=== PATIENT | female | born 1975 | race Caucasian/White ===

== ENCOUNTER → 2020-08-25 | Day surgery (SDC) | payer BC ==
[~2020-08-25] MED LIST: Lactated Ringers 1,000 ML IV SCH
--- NOTE | 2020-08-25 08:50 | PCM.SN.2 ---
- Free Text/Narrative Note: 44 year old presented to [facility] for scheduled laparoscopic assisted vaginal hysterectomy. She reported that from 08/19-08/21/20, she experienced a low grade fever, abdominal and right flank pain. She was seen in the [facility] and had labwork done including a UA, CBC, ESR and BMP. UA had RBCs and leukocytes, ESR was elevated. She does not know what the results of her BMP were. She was started on Augmentin and her symptoms have since improved. I reviewed the patient's symptoms and labs along with the risks of going through with a major surgery while she has an active infective. Strongly advised patient to reschedule her surgery when she is asymptomatic and off of her antibiotics. Patient agrees with recommendations and will present to [facility] for exam this morning and to reschedule her surgery. Case discussed with nursing staff and Dr. Pastor with anesthesia.
== END ==
LOC: MW.SDS 07:58
PROVIDERS: ATTEND Obstetrics & Gynecology
DX: R10.9 Unspecified abdominal pain (principal); Z53.09 Procedure and treatment not carried out because of other contraindication; R50.9 Fever, unspecified; Z01.812 Encounter for preprocedural laboratory examination; Z20.828 Contact with and (suspected) exposure to other viral communicable diseases
CPT/HCPCS: U0002

== ENCOUNTER 2020-09-12 07:33 | Day surgery (SDC) | payer BC ==
[~2020-09-12 07:33] MED LIST changes: +Bupivacaine 0.25% 10 ML SDV ONE; +Fluorescein 5 ML Vial ONE; -Lactated Ringers 1,000 ML IV SCH; +Methylene Blue 50 MG/10 ML Ampule ONE; +Midazolam 1 MG/ML 2 ML SDV ONE; +Propofol 200 MG/20 ML SDV ONE; +Rocuronium Bromide 50 MG/5 ML Syringe ONE; +Succinylcholine/Sod PF 100 MG/5 ML SYRINGE IV ONE; +fentaNYL 100 MCG/2 ML SDV ONE
[2020-09-12 08:30] LABS: BLOOD UREA NITROGEN,BUN 14 mg/dL (7.0-18.0); CARBON DIOXIDE,CO2 24.7 mmol/L (21.0-32.0); CHLORIDE,CL 106 mmol/L (98-107); GLUCOSE RANDOM 106 mg/dL (74-106); POTASSIUM,K 4.3 mmol/L (3.5-5.1); SODIUM,NA 139 mmol/L (136-145)
--- NOTE | 2020-09-12 08:52 | PCM.PREANE ---
Preanesthetic Assessment - Anesthesia/Transfusion/Family Hx Anesthesia History: Prior Anesthesia Without Reaction Family History of Anesthesia Reaction: No Transfusion History: No Prior Transfusion(s) Intubation History: Unknown - Review of Systems General: No Symptoms Pulmonary: No Symptoms Cardiovascular: No Symptoms Gastrointestinal: No Symptoms Neurological: No Symptoms Other: Reports: None - Physical Assessment Height: 5 ft 4.5 in Weight: 75.75 kg ASA Class: 1 Mental Status: Alert & Oriented x3 Airway Class: Mallampati = 2 Dentition: Reports: Normal Dentition Thyro-Mental Finger Breadths: 3 Mouth Opening Finger Breadths: 3 ROM/Head Extension: Full Lungs: Clear to Auscultation, Normal Respiratory Effort Cardiovascular: Regular Rate, Regular Rhythm - Lab Values: Laboratory Last Values WBC 6.90 K/uL (4.0-11.0) 09/12/20 07:53 RBC 4.40 M/uL (4.30-5.90) 09/12/20 07:53 Hgb 12.2 g/dL (12.0-16.0) 09/12/20 07:53 Hct 37.3 % (36.0-46.0) 09/12/20 07:53 MCV 84.8 fL (80.0-98.0) 09/12/20 07:53 MCH 27.7 pg (27.0-32.0) 09/12/20 07:53 MCHC 32.7 g/dL (31.0-37.0) 09/12/20 07:53 RDW Std Deviation 50.1 fl (28.0-62.0) 09/12/20 07:53 RDW Coeff of Ann 17 % (11.0-15.0) H 09/12/20 07:53 Plt Count 288 K/uL (150-400) 09/12/20 07:53 MPV 10.30 fL (7.40-12.00) 09/12/20 07:53 Nucleated RBC % 0.0 /100WBC 09/12/20 07:53 Nucleated RBCs # 0 K/uL 09/12/20 07:53 Sodium 139 mmol/L (136-145) 09/12/20 07:53 Potassium 4.3 mmol/L (3.5-5.1) 09/12/20 07:53 Chloride 106 mmol/L (98-107) 09/12/20 07:53 Carbon Dioxide 24.7 mmol/L (21.0-32.0) 09/12/20 07:53 BUN 14 mg/dL (7.0-18.0) 09/12/20 07:53 Creatinine 1.0 mg/dL (0.6-1.0) 09/12/20 07:53 Est Cr Clr Drug Dosing 64.62 mL/min 09/12/20 07:53 Estimated GFR (MDRD) > 60.0 ml/min 09/12/20 07:53 Glucose 106 mg/dL (74-106) 09/12/20 07:53 Calcium 8.6 mg/dL (8.5-10.1) 09/12/20 07:53 HCG, Qual NEGATIVE (NEG) 09/12/20 07:53 SARS-CoV-2 RNA (ZARI) NEGATIVE (NEGATIVE) 09/12/20 07:30 - Allergies Allergies/Adverse Reactions: Allergies Allergy/AdvReac Type Severity Reaction Status Date / Time No Known Allergies Allergy Verified 09/08/20 14:57 - Blood Blood Available: No - Anesthesia Plan Pre-Op Medication Ordered: None - Acknowledgements Anesthesia Type Planned: General Anesthesia Pt an Appropriate Candidate for the Planned Anesthesia: Yes Alternatives and Risks of Anesthesia Discussed w Pt/Guardian: Yes Pt/Guardian Understands and Agrees with Anesthesia Plan: Yes PreAnesthesia Questionnaire HEENT History: Reports: Impaired Vision Other HEENT History: wears glasses Cardiovascular History: Reports: None Respiratory History: Reports: None Gastrointestinal History: Reports: Other (See Below) Other Gastrointestinal History: states has occasional heartburn Genitourinary History: Reports: None 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: Musculoskeletal History: Reports: None Neurological History: Reports: Concussion, Migraines Psychiatric History: Reports: None Endocrine/Metabolic History: Reports: None Hematologic History: Reports: Iron Deficiency Immunologic History: Reports: None Oncologic (Cancer) History: Reports: None Dermatologic History: Reports: None - Infectious Disease History Infectious Disease History: Reports: Chicken Pox, Scarlet Fever Other Infectious Disease History: when a child - Past Surgical History Head Surgeries/Procedures: Reports: None HEENT Surgical History: Reports: None Cardiovascular Surgical History: Reports: None Respiratory Surgical History: Reports: None GI Surgical History: Reports: Colonoscopy Female Surgical History: Reports: Other (See Below) Other Female Surgeries/Procedures: ESSURE Endocrine Surgical History: Reports: None Neurological Surgical History: Reports: None Musculoskeletal Surgical History: Reports: None Oncologic Surgical History: Reports: None Dermatological Surgical History: Reports: None - SUBSTANCE USE Tobacco Use Status *Q: Former Tobacco User Tobacco Use Within Last Twelve Months: No - HOME MEDS Home Medications: Home Meds Calcium Carbonate [Tums] 1 tab PO ASDIRECTED PRN 08/15/20 [History] Iron 1 tab PO DAILY 08/15/20 [History] L.acidoph,Paracasei, B.lactis [Probiotic] 1 tab PO DAILY 08/15/20 [History] Omeprazole Magnesium [Prilosec Otc] 1 tab PO ASDIRECTED PRN 08/15/20 [History] - CURRENT (IN HOUSE) MEDS Current Meds: Current Medications Lactated Ringer's (Ringers, Lactated) 1,000 mls @ 125 mls/hr IV ASDIRECTED KD Discontinued Medications Bupivacaine HCl (Sensorcaine-Mpf 0.25%) Confirm Administered Dose 10 ml .ROUTE .STK-MED ONE Stop: 09/12/20 07:26 Fentanyl (Sublimaze) Confirm Administered Dose 100 mcg .ROUTE .STK-MED ONE Stop: 09/12/20 07:10 Fluorescein Sodium (Ak-Fluor) Confirm Administered Dose 5 ml .ROUTE .STK-MED ONE Stop: 09/12/20 07:26 Acetaminophen (Ofirmev) Confirm Administered Dose 100 mls @ as directed .ROUTE .STK-MED ONE Stop: 09/12/20 07:26 Lidocaine HCl (Xylocaine-Mpf 1%) Confirm Administered Dose 5 ml .ROUTE .STK-MED ONE Stop: 09/12/20 07:11 Methylene Blue (Provayblue) Confirm Administered Dose 50 mg .ROUTE .STK-MED ONE Stop: 09/12/20 07:26 Midazolam HCl (Versed 1 Mg/Ml) Confirm Administered Dose 2 mg .ROUTE .STK-MED ONE Stop: 09/12/20 07:10 Propofol (Diprivan 20 Ml) Confirm Administered Dose 200 mg .ROUTE .STK-MED ONE Stop: 09/12/20 07:10 Rocuronium [place] (Rocuronium [place]) Confirm Administered Dose 50 mg .ROUTE .STK-MED ONE Stop: 09/12/20 07:11
[2020-09-12] MEDS ORDERED: Albuterol/Ipratropium 3.0-0.5 MG/3 ML Neb Soln NEB ONE (09:00)
[2020-09-12] MEDS: Lactated Ringers 1,000 ML IV SCH ×2 (09:03→20:30)
[2020-09-12] MEDS ORDERED: CEFAZOLIN IV ONE (09:15)
[2020-09-12] MEDS ORDERED: Dexamethasone 4 MG/ML 5 ML MDV ONE (10:17)
[2020-09-12] MEDS ORDERED: diphenhydrAMINE 50 MG/ML SDV ONE (10:17)
[2020-09-12] MEDS ORDERED: fentaNYL 100 MCG/2 ML SDV IVPUSH PRN (10:28)
[2020-09-12] MEDS ORDERED: 50% Dextrose in Water 50 ML Syringe IVPUSH PRN (10:28)
[2020-09-12] MEDS ORDERED: HYDROmorphone 2 MG/ML Syringe IVPUSH PRN ×2 (10:28→12:11)
[2020-09-12] MEDS ORDERED: EPINEPHrine 1:10,000 1 MG/10 ML Syringe IVPUSH PRN (10:28)
[2020-09-12] MEDS ORDERED: Naloxone 0.4 MG/ML Syringe IVPUSH PRN (10:28)
[2020-09-12] MEDS ORDERED: Ondansetron 4 MG/2 ML SDV IVPUSH PRN ×2 (10:28→12:23)
[2020-09-12] MEDS ORDERED: Albuterol 0.083% 2.5 MG/3 ML Neb Soln NEB PRN (10:28)
[2020-09-12] MEDS ORDERED: Atropine 0.1 MG/ML 10 ML Syringe IVPUSH PRN ×2 (10:28)
[2020-09-12] MEDS ORDERED: ePHEDrine 50 MG/ML SDV ONE (11:41)
[2020-09-12] MEDS ORDERED: Glycopyrrolate 0.2 MG/ML SDV ONE (11:41)
[2020-09-12] MEDS ORDERED: Morphine 4 MG/ML Syringe IVPUSH PRN (12:23)
[2020-09-12] MEDS ORDERED: Ketorolac 30 MG/ML SDV IVPUSH PRN (12:23)
[2020-09-12] MEDS ORDERED: Ketorolac 30 MG/ML SDV IVPUSH ONE (12:23)
[2020-09-12] MEDS ORDERED: Promethazine 25 MG/ML SDV IM PRN (12:23)
[2020-09-12] MEDS ORDERED: Acetaminophen/oxyCODONE 325-5 MG Tab PO PRN (12:23)
--- NOTE | 2020-09-12 12:40 | PCM.OPNOTE ---
- General Post-Op/Procedure Note Date of Surgery/Procedure: 09/12/20 Operative Procedure(s): Pelvic washings. Laparoscopic assisted vaginal hysterectomy with bilateral salpingectomy. Cystoscopy Findings: Enlarged, 12 week size, anteverted uterus with multiple fibroids. Largest measuring about 6cm and located fundally. Normal appearing bilateral fallopian tubes and ovaries. Pre Op Diagnosis: 1. Menorrhagia. 2. Symptomatic anemia Post-Op Diagnosis: 1. Menorrhagia. 2. Symptomatic anemia Anesthesia Technique: General ET Tube Primary Surgeon: Rupali Aguillon Steamer Tender: Shila James Pathology: Uterus, cervix and bilateral fallopian tubes Fluid Replacement, Intraop: 1,800 (crystalloid) Output, Urine Amount: 150 EBL in mLs: 150 Complications: None known Condition: Good Free Text/Narrative:: Dictation # [id number]
--- NOTE | 2020-09-12 13:17 | PCM.POSTAN ---
POST ANESTHESIA ASSESSMENT - MENTAL STATUS Mental Status: Alert, Oriented - VITAL SIGNS Vital Signs: Last Vital Signs Temp 36.2 C 09/12/20 11:58 Pulse 61 09/12/20 12:49 Resp 12 09/12/20 12:49 BP 98/59 L 09/12/20 12:49 Pulse Ox 93 L 09/12/20 12:49 - RESPIRATORY Respiratory Status: Respiratory Rate WNL, Airway Patent, O2 Saturation Stable - CARDIOVASCULAR CV Status: Pulse Rate WNL, Blood Pressure Stable - GASTROINTESTINAL GI Status: No Symptoms - PAIN Pain Score: 3 - POST OP HYDRATION Hydration Status: Adequate & Stable - OBSERVATIONS Free Text/Narrative:: No anesthesia problems
[2020-09-12] MEDS ORDERED: Lactated Ringers 1,000 ML IV ONE (15:36)
[2020-09-12] MEDS ORDERED: Lactated Ringers 500 ML IV ONE (15:50)
--- NOTE | 2020-09-12 16:42 | OR ---
SURGEON: RUPALI AGUILLON MD DATE OF PROCEDURE: 09/12/2020 PREOPERATIVE DIAGNOSES: 1. Menorrhagia. 2. Symptomatic anemia. POSTOPERATIVE DIAGNOSES: 1. Menorrhagia. 2. Symptomatic anemia. PROCEDURES: 1. Pelvic washing. 2. Laparoscopically-assisted vaginal hysterectomy with bilateral salpingectomy. 3. Cystoscopy. ANESTHESIA: General endotracheal tube. PRIMARY SURGEON: Rupali Aguillon MD WAN SUPPORT SPECIALIST: Shila James MD COMPLICATIONS: None known. OPERATIVE FINDINGS: Enlarged 12-week size anteverted uterus; multiple fibroids, largest measuring about 6 cm and located fundally; and normal-appearing bilateral fallopian tubes and ovaries. BRIEF HISTORY: The patient is a 44-year-old, 5, para 5, who has a longstanding history of menorrhagia and irregular menses. In July 2019, she was noted to have a hemoglobin of 8 and was started on oral along with IV iron infusion by her primary care physician. Hemoglobin prior to procedure today is 12. She had a benign endometrial biopsy performed prior to this procedure. Consent for laparoscopically-assisted vaginal hysterectomy with bilateral salpingectomy was obtained in the office and the rest of the procedures were explained. DESCRIPTION OF PROCEDURE: The patient was taken to the operating where anesthesia was introduced. The patient was placed in a dorsal lithotomy position. The abdomen, perineum, and vagina were prepped and draped in the usual fashion. A Mensah catheter was then inserted into the bladder, attached to a straight drainage. 30 mL of methylene blue was then injected into the Mensah catheter to backfill the bladder. Attention then turned to the vagina. A weighted speculum was placed into the vagina to visualize the cervix along with anterior retractor to visualize the cervix. The anterior cervix at 12 o'clock was grasped with an Allis clamp and the cervix was noted to be dilated to 1 cm. A HUMI manipulator was then placed within the cervix and the uterus and balloon was inflated with saline. The Allis clamp and the speculum were then removed from the vagina and then attention was turned to the abdomen. Following infiltration with local anesthetic an infraumbilical incision was made and the Veress needle was gently advanced into the cavity. With CO2 infiltration, an opening pressure of 7 mmHg was noted and pneumoperitoneum of 13 mmHg was then created. A 5 mm trocar was then passed through the same incision and a laparoscope was then inserted through the trocar sleeve. Visualization of the peritoneal cavity was then obtained and brief inspection did not reveal any signs of complications with entry. Under direct visualization, 5 mm bilateral flank ports were then placed, both on the right and left sides taking care to respect anatomical landmarks and vessels. Once placement of the ports was complete, the laparoscopic procedure began. Beginning on the left side and distally along the length of the fallopian tube, the mesosalpinx was then exposed by lifting up the fimbriae toward the anterior abdominal wall. The mesosalpinx was then sequentially clamped, ligated, and cut using a LigaSure working along the length of the tube toward the cornua. Once the level of the cornua had been reached, the uterine-ovarian ligament was then clamped, cauterized, and cut with the LigaSure. The round ligament was then ligated and cut in a similar fashion. Following this, the anterior leaf of the broad ligament was then taken down on the left side, dissecting toward the peritoneal reflection in the base of the bladder and adjacent to the cervix. The bladder flap was then created without difficulty. The pedicles of the cardinal ligament were then ligated and divided on the left side and good hemostasis was noted. Attention was then turned to the patient's right pelvis where a similar procedure was carried out. The mesosalpinx was then sequentially clamped, cut, and ligated using a LigaSure toward the cornua. The uterine-ovarian ligament was then clamped, cauterized, and cut and hemostasis was noted. The round ligament was then also ligated and cut in a similar fashion. Due to large fibroid and difficult visualization, the cardinal ligament on the right side was not cauterized and cut and the vessels were left intact. Attention was then turned to the vaginal aspect of the surgery. The Mensah catheter remained intact. The weighted speculum was then placed in the posterior aspect of the vagina and the uterine manipulator was then removed. Two Jluis clamps were placed at 12 o'clock and 6 o'clock on the cervix. A circumferential incision was made at the cervicovaginal reflection using cautery. This was undermined first anteriorly and a colpotomy was made without difficulty. This was then repeated posteriorly and a similar colpotomy was made. Retractors were then placed into the vagina. A Viktoria clamp was then used to clamp the patient's left uterosacral ligament, which was then divided and suture ligated with 2-0 Vicryl. Hemostasis was noted. Similar procedure was carried out on the patient's right. After the bilateral uterosacral ligaments were suture ligated, the right cardinal ligament was clamped and sutured ligated as well, completely freeing the specimen from the patient's right side. An additional process was then repeated on the patient's left side at which point the specimen was completely freed. Once the sutures had been placed and the pedicle was secured, the uterus along with fallopian tubes were removed transvaginally without difficulty. All pedicles were inspected and hemostasis was confirmed. The vaginal vault was then oversewn with a running locking suture with 0 Vicryl, securing the anterior edge of the cuff followed by the anterior edge. Good hemostasis was noted. All instruments were then removed from the vagina at this time. A cystoscopy was then performed after fluorescein and Lasix were administered IV. Both ureteral jets were noted to be visualized and bladder was then drained. Vaginal cuff was then inspected once again and hemostasis was noted. Attention was then returned to the laparoscopic portion of the procedure. The patient was placed into the Trendelenburg and the abdomen was insufflated once again. Irrigation was then performed within the pelvis and careful inspection was performed along the pedicles and the vaginal cuff. Once the entire abdomen was inspected, the water was then suctioned and removed. The ports were then removed under direct visualization. Incisions were then closed with 4-0 Monocryl. Estimated blood loss was 150 mL. The patient tolerated the procedure well and received 2 g of Ancef prior to the procedure. The patient was taken to recovery in stable condition. All sponge, lap, and needle counts were correct x2. YARELI / MODL /[id number]
[2020-09-12] MEDS: Acetaminophen/oxyCODONE 325-5 MG Tab PO PRN (17:26)
[2020-09-13] MEDS: Acetaminophen/oxyCODONE 325-5 MG Tab PO PRN (04:08)
[2020-09-13 05:42] LABS: BLOOD UREA NITROGEN,BUN 9 mg/dL (7.0-18.0); CARBON DIOXIDE,CO2 24.8 mmol/L (21.0-32.0); CHLORIDE,CL 108 mmol/L (98-107); GLUCOSE RANDOM 115 mg/dL (74-106); POTASSIUM,K 4.8 mmol/L (3.5-5.1); SODIUM,NA 141 mmol/L (136-145)
[2020-09-13 08:07] VITALS: BP 98/49; PULSE 89
[2020-09-13] MEDS: Lactated Ringers 1,000 ML IV SCH (09:01)
--- NOTE | 2020-09-13 09:11 | PCM.PN ---
- General Info Date of Service: 09/13/20 Admission Dx/Problem (Free Text): Menorrhagia, symptomatic anemia Subjective Update: Resting comfortably in bed. Pain well controlled with minimal PO medication overnight. Tolerating regular diet without nausea/vomiting. Ambulating about room without difficulty. Passing flatus. Mensah catheter removed at ~0430 this morning and has not voided. Scant amount of vaginal bleeding. - Patient Data Vitals - Most Recent: Last Vital Signs Temp 98.7 F 09/13/20 08:06 Pulse 89 09/13/20 08:06 Resp 18 09/13/20 08:06 BP 98/49 L 09/13/20 08:06 Pulse Ox 93 L 09/13/20 08:06 Weight - Most Recent: 167 lb I&O - Last 24 Hours: Intake & Output 09/12/20 09/13/20 09/13/20 22:59 06:59 14:59 Intake Total 800 3130 120 Output Total 125 3600 Balance 675 -470 120 Lab Results Last 24 Hours: Laboratory Results - last 24 hr 09/13/20 09/13/20 Range/Units 05:20 05:20 WBC 11.46 H (4.0-11.0) K/uL RBC 3.56 L (4.30-5.90) M/uL Hgb 9.1 L (12.0-16.0) g/dL Hct 29.0 L (36.0-46.0) % MCV 81.5 (80.0-98.0) fL MCH 25.6 L (27.0-32.0) pg MCHC 31.4 (31.0-37.0) g/dL RDW Std Deviation 49.0 (28.0-62.0) fl RDW Coeff of Ann 17 H (11.0-15.0) % Plt Count 245 (150-400) K/uL MPV 9.70 (7.40-12.00) fL Neut % (Auto) 73.4 (48.0-80.0) % Lymph % (Auto) 18.9 (16.0-40.0) % [place] % (Auto) 7.3 (0.0-15.0) % Eos % (Auto) 0.3 (0.0-7.0) % Baso % (Auto) 0.1 (0.0-1.5) % Neut # (Auto) 8.4 H (1.4-5.7) K/uL Lymph # (Auto) 2.2 (0.6-2.4) K/uL [place] # (Auto) 0.8 (0.0-0.8) K/uL Eos # (Auto) 0.0 (0.0-0.7) K/uL Baso # (Auto) 0.0 (0.0-0.1) K/uL Nucleated RBC % 0.0 /100WBC Nucleated RBCs # 0 K/uL Sodium 141 (136-145) mmol/L Potassium 4.8 (3.5-5.1) mmol/L Chloride 108 H (98-107) mmol/L Carbon Dioxide 24.8 (21.0-32.0) mmol/L BUN 9 (7.0-18.0) mg/dL Creatinine 1.0 (0.6-1.0) mg/dL Est Cr Clr Drug Dosing 64.62 mL/min Estimated GFR (MDRD) > 60.0 ml/min Glucose 115 H (74-106) mg/dL Calcium 8.1 L (8.5-10.1) mg/dL Med Orders - Current: Current Medications Lactated Ringer's (Ringers, Lactated) 1,000 mls @ 125 mls/hr IV ASDIRECTED [facility] Last Admin: 09/13/20 09:01 Dose: 125 mls/hr Documented by: Ketorolac Tromethamine (Toradol) 30 mg IVPUSH Q6H PRN PRN Reason: Pain (severe 7-10) Stop: 09/17/20 12:23 Last Admin: 09/12/20 20:25 Dose: 30 mg Documented by: Morphine Sulfate (Morphine) 4 mg IVPUSH Q2H PRN PRN Reason: Pain (severe 7-10) Ondansetron HCl (Zofran) 4 mg IVPUSH Q6H PRN PRN Reason: Nausea/Vomiting Oxycodone/Acetaminophen (Percocet 325-5 Mg) 1 tab PO Q4H PRN PRN Reason: Pain (moderate 4-6) Last Admin: 09/13/20 04:08 Dose: 1 tab Documented by: Oxycodone/Acetaminophen (Percocet 325-5 Mg) 2 tab PO Q4H PRN PRN Reason: Pain (moderate 4-6) Promethazine HCl (Phenergan) 25 mg IM Q6H PRN PRN Reason: Nausea/Vomiting Discontinued Medications Albuterol (Proventil Neb Soln) 2.5 mg NEB ONETIME PRN PRN Reason: Wheezing Albuterol/Ipratropium (Duoneb 3.0-0.5 Mg/3 Ml) 3 ml NEB ONETIME ONE Stop: 09/12/20 09:01 Last Admin: 09/12/20 09:13 Dose: 3 ml Documented by: Atropine Sulfate (Atropine 0.1 Mg/Ml) 0.5 mg IVPUSH ASDIRECTED PRN PRN Reason: Hypo-perfusion Atropine Sulfate (Atropine 0.1 Mg/Ml) 1 mg IVPUSH ASDIRECTED PRN PRN Reason: Hypo-Perfusion Bupivacaine HCl (Sensorcaine-Mpf 0.25%) Confirm Administered Dose 10 ml .ROUTE .STK-MED ONE Stop: 09/12/20 07:26 Dexamethasone (Dexamethasone) Confirm Administered Dose 20 mg .ROUTE .STK-MED ONE Stop: 09/12/20 10:18 Dextrose/Water (Dextrose 50% In Water) 50 ml IVPUSH ASDIRECTED PRN PRN Reason: Hypoglycemia Diphenhydramine HCl (Benadryl) Confirm Administered Dose 50 mg .ROUTE .STK-MED ONE Stop: 09/12/20 10:18 Ephedrine Sulfate (Ephedrine Sulfate) Confirm Administered Dose 50 mg .ROUTE .STK-MED ONE Stop: 09/12/20 11:42 Epinephrine HCl (Epinephrine 1:10,000) 1 mg IVPUSH ASDIRECTED PRN PRN Reason: ACLS Guidelines Fentanyl (Sublimaze) Confirm Administered Dose 100 mcg .ROUTE .STK-MED ONE Stop: 09/12/20 07:10 Fentanyl (Sublimaze) 50 mcg IVPUSH Q5M PRN PRN Reason: Pain Fluorescein Sodium (Ak-Fluor) Confirm Administered Dose 5 ml .ROUTE .STK-MED ONE Stop: 09/12/20 07:26 Glycopyrrolate (Robinul) Confirm Administered Dose 0.6 mg .ROUTE .STK-MED ONE Stop: 09/12/20 11:42 Hydromorphone HCl (Dilaudid) 0.5 mg IVPUSH .Q5MIN PRN PRN Reason: Pain (severe 7-10) Stop: 09/13/20 10:28 Hydromorphone HCl (Dilaudid) 1 - 2 mg IVPUSH ONETIME PRN PRN Reason: Pain Last Admin: 09/12/20 12:17 Dose: 2 mg Documented by: Acetaminophen (Ofirmev) Confirm Administered Dose 100 mls @ as directed .ROUTE .STK-MED ONE Stop: 09/12/20 07:26 Cefazolin Sodium/Dextrose 2 gm (/ Premix) 50 mls @ 100 mls/hr IV ONETIME ONE Stop: 09/12/20 09:44 Last Admin: 09/12/20 13:58 Dose: Not Given Documented by: Cefazolin Sodium/Dextrose (Ancef) Confirm Administered Dose 50 mls @ as directed .ROUTE .STK-MED ONE Stop: 09/12/20 09:16 Lactated Ringer's (Ringers, Lactated) 1,000 mls @ 999 mls/hr IV .BOLUS ONE Stop: 09/12/20 16:36 Lactated Ringer's (Ringers, Lactated) 500 mls @ 500 mls/hr IV .BOLUS ONE Stop: 09/12/20 16:49 Last Admin: 09/12/20 15:57 Dose: 999 mls/hr Documented by: Ketorolac Tromethamine (Toradol) 30 mg IVPUSH ONETIME ONE Stop: 09/12/20 12:24 Last Admin: 09/12/20 12:45 Dose: 30 mg Documented by: Lidocaine HCl (Xylocaine-Mpf 1%) Confirm Administered Dose 5 ml .ROUTE .STK-MED ONE Stop: 09/12/20 07:11 Methylene Blue (Provayblue) Confirm Administered Dose 50 mg .ROUTE .STK-MED ONE Stop: 09/12/20 07:26 Midazolam HCl (Versed 1 Mg/Ml) Confirm Administered Dose 2 mg .ROUTE .STK-MED ONE Stop: 09/12/20 07:10 Naloxone HCl (Narcan) 0.1 mg IVPUSH ASDIRECTED PRN PRN Reason: Respiratory Depression Ondansetron HCl (Zofran) 4 mg IVPUSH ONETIME PRN PRN Reason: Nausea/Vomiting Propofol (Diprivan 20 Ml) Confirm Administered Dose 200 mg .ROUTE .STK-MED ONE Stop: 09/12/20 07:10 Rocuronium [place] (Rocuronium [place]) Confirm Administered Dose 50 mg .ROUTE .STK-MED ONE Stop: 09/12/20 07:11 - Exam General: Alert Lungs: Clear to Auscultation, Normal Respiratory Effort Cardiovascular: Regular Rate, Regular Rhythm GI/Abdominal Exam: Soft, Tender (appropriate postoperative), Abnormal Bowel Sounds (hypoactive) (Female) Exam: Normal External Exam Back Exam: Normal Inspection, Full Range of Motion Extremities: Normal Inspection, Non-Tender, No Pedal Edema Skin: Warm, Dry, Intact Wound/Incisions: Dressing Dry and Intact Neurological: No New Focal Deficit Psy/Mental Status: Normal Mood Sepsis Event Note - Evaluation Sepsis Screening Result: No Definite Risk - Focused Exam Vital Signs: Vital Signs Temp Pulse Resp BP Pulse Ox 09/13/20 08:06 98.7 F 89 18 98/49 L 93 L 09/13/20 03:50 98.2 F 75 16 106/62 96 09/13/20 00:40 98.2 F 78 17 102/60 96 - Problem List Review Problem List Initiated/Reviewed/Updated: Yes - My Orders Last 24 Hours: My Active Orders 09/12/20 Lunch Regular Diet [DIET] 09/12/20 12:23 Patient Status [ADT] Routine Oxygen Therapy [RC] ASDIRECTED RT Incentive Spirometry [RC] Q2HWA Up With Assistance [RC] PER UNIT ROUTINE Up ad Angle [RC] PER UNIT ROUTINE Urinary Catheter Removal [RC] Per Unit Routine Vital Signs [RC] PER UNIT ROUTINE Acetaminophen/oxyCODONE [Percocet 325-5 MG] 1 tab PO Q4H PRN Acetaminophen/oxyCODONE [Percocet 325-5 MG] 2 tab PO Q4H PRN Ketorolac [Toradol] 30 mg IVPUSH Q6H PRN Morphine 4 mg IVPUSH Q2H PRN Ondansetron [Zofran] 4 mg IVPUSH Q6H PRN Promethazine [Phenergan] 25 mg IM Q6H PRN Peripheral IV Discontinue [OM.PC] Routine Sequential Compression Device [OM.PC] Per Unit Routine Resuscitation Status Routine 09/12/20 12:24 Antiembolic Devices [RC] PER UNIT ROUTINE 09/12/20 Dinner Advance Diet Instructions [DIET] 09/12/20 17:10 Communication Order [RC] PRN - Assessment Assessment:: 44 year old female POD 1 s/p LAVH-BS due to menorrhagia and symptomatic anemia - Plan Plan:: Routine postoperative cares * VSS, afebrile * IVF: maintenance 125cc/hr LR, will discontinue today * Diet regular * Labs * Pain medications * Antie-emetics * Ambulation: ad angle Anemia * Hgb 12.1> 9.1, asymptomatic * Continue PO iron * Reviewed bleeding precautions Dispo: stable. Meeting postoperative milestones except for independent voiding. Good I/O overnight. Will plan for discharge once patient has voided. 2 and 6 week postoperative appointments have been scheduled. Reviewed discharge precautions including fever/chills, intractable nausea/vomiting, severe pain not controlled by PO medications and heavy vaginal bleeding.
--- NOTE | 2020-09-13 09:40 | PCM48HPAN ---
Post Anesthesia Note - EVALUATION WITHIN 48HRS OF ANESTHETIC Vital Signs in Normal Range: Yes Patient Participated in Evaluation: Yes Respiratory Function Stable: Yes Airway Patent: Yes Cardiovascular Function Stable: Yes Hydration Status Stable: Yes Pain Control Satisfactory: Yes Nausea and Vomiting Control Satisfactory: Yes Mental Status Recovered: Yes Vital Signs: Last Vital Signs Temp 37.1 C 09/13/20 08:06 Pulse 89 09/13/20 08:06 Resp 18 09/13/20 08:06 BP 98/49 L 09/13/20 08:06 Pulse Ox 93 L 09/13/20 08:06
== END 2020-09-13 10:40 | disposition home or self-care (01) ==
LOC: MW.SDS 07:33 → MW.MS 13:14 → MW.SDS 09-13 10:40
PROVIDERS: ATTEND Obstetrics & Gynecology
DX: D25.1 Intramural leiomyoma of uterus (principal); D25.0 Submucous leiomyoma of uterus; N72 Inflammatory disease of cervix uteri; N88.8 Other specified noninflammatory disorders of cervix uteri; D64.9 Anemia, unspecified; R32 Unspecified urinary incontinence; Z01.812 Encounter for preprocedural laboratory examination; Z20.822 Contact with and (suspected) exposure to COVID-19; Z79.899 Other long term (current) drug therapy; Z87.891 Personal history of nicotine dependence
CPT/HCPCS: 36415; 51702; 58554; 80048; 84703; 85025; 85027; 86850; 86900; 86901; 87635; A9270; J0131; J0330; J0690; J1100; J1170; J1200; J1885; J2001; J2250; J2704; J3490; J7120; 88104; 88307; J3010; J7620-GY; U0002